=== PATIENT | female | born 1980 | race Caucasian/White ===

== ENCOUNTER 2018-02-25 13:00 | Observation (INO) ==
--- NOTE | 2018-02-25 13:55 | Emergency Department Note ---
Disposition Clinical Impression: Dysphagia Qualifiers: Dysphagia type: unspecified Qualified Code(s): R13.10 - Dysphagia, unspecified Disposition: Admitted As Inpatient Condition: Good Time of Disposition: 17:53 General Adult HPI - General Chief complaint: ED Nausea/Vomiting/Diarrhea Stated complaint: Cant eat or drink Time Seen by Provider: 02/25/18 13:25 Source: patient, other (Patient "friend" in room) Limitations: no limitations Nursing Notes Reviewed: Yes Vital Signs Reviewed: Yes - History of Present Illness HPI Narrative: Patient is a 37-year-old female presenting to [facility] ED for a 2 day history of dysphasia. Patient states that she has a six- year history of esophageal strictures that are managed by Dr. Hawthorne. Patient states that she has had 2 previous dilations performed, previous being 2 years ago with her initial dilation being performed 5 years ago. Patient states that she was scheduled for manometry by Dr. Hawthorne but has not yet made that appointment. Patient states that 2 days ago she began developing developing dysphasia to solid food as well as liquids. Patient states this has progressed to her being unable to handle her own secretions. Patient denies headache, vision change, neck/throat pain/odynophagia, chest pain, shortness of breath, nausea/vomiting/abdominal pain, blood in her urine or stool, or generalized paresthesias. Patient denies any other medical history, or medications. Pt Subjective Complaint: Dysphasia Onset (ago): day(s) Location: neck Radiation: non-radiation Pain Scale: 0 - Related Data Home Medications Medication Instructions Recorded Confirmed RX: No Known Home Drugs 02/25/18 02/25/18 Allergies Allergy/AdvReac Type Severity Reaction Status Date / Time ibuprofen [From Motrin] Allergy See Verified 02/25/18 16:14 Comments tramadol AdvReac Nausea Verified 02/25/18 16:14 All systems ED: reviewed and negative except as stated. Review of Systems: As Per HPI Constitutional: Denies: fever, chills Eyes: Denies: vision change ENT ED: Reports: dysphagia. 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 Absent: scleral icterus, conjunctival injection - Neck Neck exam: Present: normal inspection, trachea midline. Absent: lymphadenopathy, thyromegaly - Chest Chest inspection: Present: normal inspection, symmetric chest wall rise - Respiratory Respiratory exam: Present: normal lung sounds bilaterally. Absent: respiratory distress, wheezes, stridor, accessory muscle use, prolonged expiratory phase - Cardiovascular Cardiovascular exam: Present: regular rate, normal rhythm, normal heart sounds, +S1, +S2. Absent: rubs, gallop, clicks, JVD, +S3, +S4 - Abdominal Exam Abdominal exam: Present: soft, Non-Tender, normal bowel sounds. Absent: distention, guarding, rebound, rigidity, organomegaly - Neurological Exam Neurological exam: Present: alert, oriented X3 - Psychiatric Psychiatric exam: Present: normal affect, normal mood - Skin Skin exam: Present: warm, dry, intact, normal color. Absent: cyanosis, diaphoresis Course Course Narrative: Patient history, review systems, physical exam is concerning for continued complications of esophageal strictures. EKG will be performed to rule out cardiac etiology. GI consult to Dr. Hawthorne will be performed for further recommendations, evaluation and management. - Reevaluation(s) Reevaluation #1: Dr. Hawthorne from gastroenterology has been consulted and recommends admission for fluid/nutrition management and further evaluation and treatment for this patient. Gastroenterology consult has been placed. Dr. Hawthorne will be following. Time: 15:09 Vital Signs Temperature 98.1 F 02/25/18 13:02 Pulse Rate 67 02/25/18 13:02 Respiratory Rate 20 02/25/18 13:02 Blood Pressure 149/88 02/25/18 13:02 O2 Sat by Pulse Oximetry 98 02/25/18 13:02 Temperature 98.1 F 02/25/18 15:39 Pulse Rate 67 02/25/18 15:39 Respiratory Rate 20 02/25/18 15:39 Blood Pressure 149/88 02/25/18 15:39 O2 Sat by Pulse Oximetry 98 02/25/18 15:39 Oxygen Delivery Oxygen Delivery Room Air Medical Decision Making - MDM Narrative Medical decision making narrative: Patient to be admitted to the hospital with Dr. Ozzy clark. - Lab Data Result diagrams: 02/25/18 15:09 02/25/18 15:09 Lab Results 02/25/18 02/25/18 Range/Units 15:09 15:09 WBC 6.4 (4.3-11.1) K/mcL RBC 5.41 H (3.82-4.97) M/mcL Hgb 16.3 H (11.5-15.4) g/dL Hct 47.2 H (35.3-44.9) % MCV 87.2 (83.0-100.0) fL MCH 30.1 (28.0-33.3) pg MCHC 34.5 (31.6-35.5) g/dL RDW 12.7 (11.5-14.5) % Plt Count 118 L (140-400) K/mcL MPV 10.4 (9.4-12.4) fL Immature Gran % 0.3 (0-4) % Seg Neutrophils % 77.7 % Lymphocytes % 15.3 % Monocytes % 5.0 % Eosinophils % 1.1 % Basophils % 0.6 % Neutrophils # 5.0 (1.6-8.9) K/mcL Lymphocytes # 1.0 (0.6-4.6) K/mcL Monocytes # 0.3 (0.0-1.3) K/mcL Eosinophils # 0.1 (0.0-0.6) K/mcL Basophils # 0.0 (0.0-0.2) K/mcL Sodium 139 (136-145) mEq/L Potassium 3.8 (3.5-5.1) mEq/L Chloride 102 (98-107) mEq/L Carbon Dioxide 27 (23-29) mEq/L BUN 18 (6-20) mg/dL Creatinine 0.95 (0.60-1.20) mg/dL Est GFR ( Amer) > 60 (> 60) Est GFR (Non-Af Amer) > 60 (> 60) BUN/Creatinine Ratio 19 (6-26) Glucose 80 (70-105) mg/dL Calculated Osmolality 289 (280-300) Calcium 10.8 H (8.6-10.3) mg/dL Total Bilirubin 1.6 H (0.3-1.0) mg/dL AST 20 (13-39) Units/L ALT 14 (7-52) Units/L Alkaline Phosphatase 86 (34-104) Units/L Serum Total Protein 9.4 H (6.4-8.9) g/dL Albumin 6.0 H (3.5-5.7) g/dL Globulin 3.4 (2.4-3.5) g/dL Albumin/Globulin Ratio 1.8 (1.1-2.2) Attestation Statement - Attestation Attestation: I examined this patient and my medical decision-making was reviewed with the Resident Physician, Dr. Worthy. I agree with the documented findings, disposition and treatment plan as described except to the extent set forth below. Patient is a 37-year-old white female with chronic GI symptoms including dysphasia and achalasia who presents emergency permit today with a 2 day history of worsening dysphasia with both solids and liquids. Patient has been seen by Dr. mirza in the past was last scoped approximately 2 years ago and attempted manometry was done at that time but she had difficulty tolerating the procedure. Patient at that time was admitted for dehydration and even had a psychiatric consult to rule out anything disorder. Patient was also seen by nephrology at that time for AK I likely due to decreased by mouth intake. Patient states she has not really been able tolerate any food or drink over the past 2 days she denies any significant abdominal pain or cramping no chest pain or pressure sensation no shortness of breath no cough no other associated symptoms. I agree with patient's physical exam findings as documented. For me on exam she looked clinically dry with dry lips and mucous membranes but in no acute distress with no respiratory distress and no difficulty managing her secretions at bedside. Patient had an IV saline well placed was given a liter fluid bolus and labs were obtained. We contacted Dr. mirza discussed the case with him and he recommended admission healthy the patient on the floor due to her inability to tolerate by mouth. Case was also discussed with hospitalist who accepted patient for admission for further evaluation and management. Patient is hemodynamically stable at this time.
[2018-02-25] MEDS ORDERED: 0.9 % Sodium Chloride 1,000 ML IVC ONE (15:15)
[2018-02-25 15:44] LABS: Basophils % 0.6 %; Eosinophils # 0.1 K/mcL (0.0-0.6); Eosinophils % 1.1 %; Hematocrit 47.2 % (35.3-44.9); Hemoglobin 16.3 g/dL (11.5-15.4); Immature Granulocytes % 0.3 % (0-4); Lymphocytes % 15.3 %; Mean Corpuscular HGB Conc 34.5 g/dL (31.6-35.5); Mean Corpuscular Hemoglobin 30.1 pg (28.0-33.3); Mean Corpuscular Volume 87.2 fL (83.0-100.0); Mean Platelet Volume 10.4 fL (9.4-12.4); Monocytes # 0.3 K/mcL (0.0-1.3); Platelet Count 118 K/mcL (140-400); Red Blood Count 5.41 M/mcL (3.82-4.97); Red Cell Distribution Width 12.7 % (11.5-14.5); Segmented Neutrophils % 77.7 %
[2018-02-25 15:54] LABS: Alanine Aminotransferase 14 Units/L (7-52); Albumin/Globulin Ratio 1.8 (1.1-2.2); Alkaline Phosphatase 86 Units/L (34-104); Aspartate Amino Transferase 20 Units/L (13-39); BUN/Creatinine Ratio 19 (6-26); Bilirubin,Total 1.6 mg/dL (0.3-1.0); Blood Urea Nitrogen 18 mg/dL (6-20); Calcium 10.8 mg/dL (8.6-10.3); Carbon Dioxide 27 mEq/L (23-29); Chloride 102 mEq/L (98-107); Globulin 3.4 g/dL (2.4-3.5); Glucose 80 mg/dL (70-105); Osmolality,Calculated 289 (280-300); Potassium 3.8 mEq/L (3.5-5.1); Sodium 139 mEq/L (136-145); Total Protein 9.4 g/dL (6.4-8.9); eGFR For Non-African Americans > 60 (> 60)
[2018-02-25] MEDS ORDERED: Naloxone 0.4 MG/ML INJ IVP PRN (16:39)
--- NOTE | 2018-02-25 16:44 | Internal Med History&Physical ---
Date of Encounter: 02/25/18 Time of Encounter: 16:41 Internal Medicine - H&P: HPI Chief complaint: Dysphagia Admitted From: Home Plans for Post Hospital Care: Home History of present illness: Ms. Hercules is a 37 year old female with a reported 4 year history of dysphasia. She has undergone esophageal dilation on [address] Hawthorne. EGD 07/29 concerning for achalasia. She presents to [facility] ED today with worsening dysphagia over the last 2-3 days. She is also reporting nausea and vomiting. She reports that for the last 4 years she has 1 been able to eat beans and rice and mashed potatoes. She reports that she needs any additional solid foods and even some liquids and to experience vomiting. She states that she was attempting to eat pancakes the other day and he managed to take 2 bites before feeling nauseous. She has had intermittent vomiting and nausea since. She is being admitted for observation overnight and will undergo EGD in the morning with Dr. Bethea for possible esophageal dilation. In the meantime we will treat her with antiemetics and IV fluids. Past Med Surg Social Fam HX - Past Medical History Medical history: asthma, GERD, other Additional medical history: Narcolepsy Psychiatric history: no psych history - Past Surgical History Surgical History: Additional surgical history: x2 - Social History Smoking Status: Never smoker Smokeless Tobacco Status: No Alcohol use: none Drug use: none - Family History Mother Living Status: Still Living Father Living Status: Hx Family Cardiac Disorders: Yes (CA, htn) Hx Family Respiratory Disorders: Yes Hx Family Endocrine Disorder: Yes (DM) Internal Medicine - H&P: Meds No Known Home Drugs 02/25/18 [History] Allergy/AdvReac Type Severity Reaction Status Date / Time ibuprofen [From Motrin] Allergy See Verified 02/25/18 16:14 Comments tramadol AdvReac Nausea Verified 02/25/18 16:14 All Systems PM: A 10-system review of systems was performed and is negative for pertinent findings except as documented above in the HPI. Review of systems: REVIEW OF SYSTEMS GENERAL: Negative for any fevers, chills, or weight loss. Positive for nausea and vomiting however, is not vomiting at this time NEUROLOGIC: Negative for any blurry vision, blind spots, double vision, facial asymmetry,dysarthria, hemiparesis, hemisensory deficits, vertigo, ataxia. Positive for dysphagia HEENT: Negative for any head trauma, neck trauma, neck stiffness, photophobia, phonophobia, sinusitis, rhinitis. CARDIAC: Negative for any chest pain, dyspnea on exertion, paroxysmal nocturnal dyspnea, peripheral edema. PULMONARY: Negative for any shortness of breath, wheezing, COPD, or TB exposure. GASTROINTESTINAL: Negative for any abdominal pain, nausea, vomiting, bright red blood per rectum, melena. GENITOURINARY: Negative for any dysuria, hematuria, incontinence. INTEGUMENTARY: Negative for any rashes, cuts, insect bites. RHEUMATOLOGIC: Negative for any joint pains, photosensitive rashes, history of vasculitis or kidney problems. HEMATOLOGIC: Negative for any abnormal bruising, frequent infections or bleeding. - Constitutional Vitals: Temp Pulse Resp BP Pulse Ox 98.1 F 67 20 149/88 98 02/25/18 15:39 02/25/18 15:39 02/25/18 15:39 02/25/18 15:39 02/25/18 15:39 General appearance: Present: A&O X 3 Exam: see exam - Head Head exam: Present: atraumatic, normocephalic - Eye Eye exam: Present: PERRL, conjuntiva pink, sclera anicteric Pupils: Present: PERRL - Neck Neck exam general surgery: Present: supple, trachea midline. Absent: lymphadenopathy - Respiratory Respiratory exam: Present: CTAB. Absent: accessory muscle use, rales, rhonchi, wheezes - Cardiovascular Cardiovascular exam: Present: RRR, +S1, +S2. Absent: diastolic murmur, gallop, rubs, systolic murmur - GI/Abdominal GI/Abdominal exam: Present: normal bowel sounds, soft, no peritoneal signs. Absent: distended, tenderness - Extremities Exam Extremities exam: Present: warm, radial pulses palpable and symmetrical. Absent: calf tenderness, cyanotic, pedal edema - Neurological Exam Neurological exam: Present: CN II-XII intact, oriented X3, no focal deficits. Absent: pronater drift, facial droop, speech deficit - Skin Skin exam: Present: dry, intact Internal Med - H&P Results - Labs CBC & Chem 7: 02/25/18 15:09 02/25/18 15:09 Labs: Short CBC 02/25/18 Range/Units 15:09 WBC 6.4 (4.3-11.1) K/mcL Hgb 16.3 H (11.5-15.4) g/dL Hct 47.2 H (35.3-44.9) % Plt Count 118 L (140-400) K/mcL Neutrophils # 5.0 (1.6-8.9) K/mcL BMP 02/25/18 15:09 Sodium 139 Potassium 3.8 Chloride 102 Carbon Dioxide 27 BUN 18 Creatinine 0.95 Glucose 80 Calcium 10.8 H Liver Function 02/25/18 Range/Units 15:09 Total Bilirubin 1.6 H (0.3-1.0) mg/dL AST 20 (13-39) Units/L ALT 14 (7-52) Units/L Alkaline Phosphatase 86 (34-104) Units/L Albumin 6.0 H (3.5-5.7) g/dL - Assessment and plan (1) Dysphagia Current Visit: Yes Status: Acute Assessment and plan: Presents with dysphagia; difficulty with both solids and liquids previous esophageal dilation in 2014 with little improvement in s/sx to have EGD per Dr. Hawthorne in am for evaluation and dilation trial liquid diet now, NPO at midnight treat n/v with promethazine Qualifiers: Dysphagia type: unspecified Qualified Code(s): R13.10 - Dysphagia, unspecified (2) Nausea & vomiting Current Visit: No Status: Acute Assessment and plan: N/V x 2-3 days h/o esophageal stricture follows with Dr. Hawthorne and has had dilation in the past treat N/V with promethazine IVF at 75ml/hr x 2 liters currently not having and emesis but reporting mild nausea trial full liquid diet as salvador NPO at mn Qualifiers: Vomiting type: unspecified Vomiting Intractability: non-intractable Qualified Code(s): R11.2 - Nausea with vomiting, unspecified (3) DVT prophylaxis Current Visit: Yes Status: Acute Assessment and plan: activity, low-risk - Time Spent With Patient Total time spent is greater than 50% in coordination of care (as documented) at patient's floor/unit and/or counseling patient: less than 15 minutes - VTE Reasons for not Prescribing Prophylaxis: Treatment not Indicated - Low risk for VTE
[2018-02-25 17:15] LABS: INR 1.2; Prothrombin Time 13.3 Seconds (9.4-12.1)
[2018-02-25] MEDS: *HR* Promethazine 25 MG/ML VIAL IVP PRN (17:58)
[2018-02-25] MEDS: 0.9 % Sodium Chloride 1,000 ML IVC SCH (17:58)
[2018-02-25] MEDS ORDERED: Acetaminophen 325 MG TABLET PO PRN (20:34)
[2018-02-25] MEDS ORDERED: Acetaminophen IV 500 MG/50 ML INFUS..BTL IVPB ONE (20:57)
[2018-02-26] MEDS: *HR* Promethazine 25 MG/ML VIAL IVP PRN ×2 (03:29→11:17)
[2018-02-26] MEDS: 0.9 % Sodium Chloride 1,000 ML IVC SCH (07:47)
--- NOTE | 2018-02-26 09:09 | Internal Med Progress Note ---
Hospitalist Progress Note - Encounter Date of Encounter: 02/26/18 Time of Encounter: 09:07 - Subjective Interval History: Seen and examined at bedside today. No acute changes overnight. Continues to report dysphagia but reports nausea is improving. She is to undergo endoscopy further evaluation with Dr. Hawthorne this afternoon. - Exam Vitals: Temp Pulse Resp BP Pulse Ox 98.0 F 63 16 123/77 99 02/26/18 08:45 02/26/18 08:45 02/26/18 08:45 02/26/18 08:45 02/26/18 08:45 Exam: PHYSICAL EXAMINATION: GENERAL: 37-year-old female who appears stated age. She is alert and oriented 3 without any acute distress. HEENT: Head is normocephalic and atraumatic. Extraocular muscles are intact. Pupils are equal, round, and reactive to light and accommodation. Poor dent ition with dental caries throughout. NECK: Supple LUNGS: Clear to auscultation B/L AP and L. HEART: Regular rate and rhythm, S1, S2 without murmur rubs or gallops. ABDOMEN: Soft, nontender, and nondistended. Positive bowel sounds. No hepatosplenomegaly was noted. EXTREMITIES: Without any cyanosis, clubbing, rash, lesions or edema. NEUROLOGIC: Cranial nerves II through XII are grossly intact. PSYCHIATRIC: Appropriate affect, denies SI/HI, without agitation or anxiety - Assessment and Plan (1) Dysphagia Current Visit: Yes Status: Acute Assessment and Plan: Presents with dysphagia; difficulty with both solids and liquids previous esophageal dilation in 2014 with little improvement in s/sx to have EGD per Dr. Hawthorne in am for evaluation and dilation trial liquid diet now, NPO at midnight treat n/v with promethazine 02/26/18--dysphagia persists today. This is been ongoing for greater than 4 years. She has had prior evaluation with gastroenterology in the past. The, patient remained stable. She is nothing by mouth and is to undergo endoscopy for further evaluation of dysphagia this afternoon. She is denying nausea at this time however, continue to treat nausea when necessary. (2) Nausea & vomiting Current Visit: No Status: Acute Assessment and Plan: as above (3) DVT prophylaxis Current Visit: Yes Status: Acute Assessment and Plan: activity, low-risk - Time Spent with Patient Total time spent is greater than 50% in coordination of care (as documented) at patient's floor/unit and/or counseling patient: less than 15 minutes Plan of Care Discussed with: patient Internal Medicine: Result - Labs CBC & Chem 7: 02/25/18 15:09 02/25/18 15:09 Labs: Short CBC 02/25/18 Range/Units 15:09 WBC 6.4 (4.3-11.1) K/mcL Hgb 16.3 H (11.5-15.4) g/dL Hct 47.2 H (35.3-44.9) % Plt Count 118 L (140-400) K/mcL Neutrophils # 5.0 (1.6-8.9) K/mcL BMP 02/25/18 15:09 Sodium 139 Potassium 3.8 Chloride 102 Carbon Dioxide 27 BUN 18 Creatinine 0.95 Glucose 80 Calcium 10.8 H Liver Function 02/25/18 Range/Units 15:09 Total Bilirubin 1.6 H (0.3-1.0) mg/dL AST 20 (13-39) Units/L ALT 14 (7-52) Units/L Alkaline Phosphatase 86 (34-104) Units/L Albumin 6.0 H (3.5-5.7) g/dL - ABG Interpretation ABG results: PT/INR, D-dimer PT 13.3 Seconds (9.4-12.1) H 02/25/18 16:48 - VTE Reasons for not Prescribing Prophylaxis: Treatment not Indicated - Low risk for VTE Consult Discharge Plan - Plan Referrals: Rizwan Patel MD [Primary Care Provider] - (1) Dysphagia Qualifiers: Dysphagia type: unspecified Qualified Code(s): R13.10 - Dysphagia, unspecif ied (2) Nausea & vomiting Qualifiers: Vomiting type: unspecified Vomiting Intractability: non-intractable Qualified Code(s): R11.2 - Nausea with vomiting, unspecified
[2018-02-26] MEDS ORDERED: *HR* Propofol 200 MG/20 ML VIAL IVP ONE ×2 (09:10→09:19)
--- NOTE | 2018-02-26 09:10 | Anesthesia Evaluation PreOp ---
Date of Encounter: 02/26/18 Time of Encounter: 09:07 - Past History Planned Operation: EGD Cardiac History: Denies any Significant Hx Pulmonary History: Denies Any Significant HX DIGITAL RESEARCH ANALYST History: Denies Any Significant HX Other Medical History: Other (dysphagia with hx esophageal dilations in past) Anesthesia History: No Prior Anesthetic Complications, Past Anesthesia (C/S x 2, tonsils) : No Alcohol Use: none Drug use: none Medications and Allergies No Known Home Drugs 02/25/18 [History] Allergy/AdvReac Type Severity Reaction Status Date / Time ibuprofen [From Motrin] Allergy See Verified 02/25/18 16:14 Comments tramadol AdvReac Nausea Verified 02/25/18 16:14 - Meds/Allergy Pre-op Review Medications Reviewed: Yes Allergies Reviewed: Yes Beta Blockers on Current Med List: No Anesthesia Results - Labs 02/25/18 15:09 02/25/18 15:09 Anesthesia Exam Selected Entries 02/26/18 08:45 Temperature 98.0 F Pulse Rate 63 Respiratory Rate 16 Blood Pressure 123/77 O2 Sat by Pulse Oximetry 99 Weight: 53kg NPO (# of Hours): 8 - HEENT Pupil (Motor): EOMI Mallampati: II Teeth: Normal Oral Opening: Greater than 3 - DIGITAL RESEARCH ANALYST LOC: Oriented DIGITAL RESEARCH ANALYST Motor: Normal RUE, Normal LUE, Normal RLE, Normal LLE, Normal Face DIGITAL RESEARCH ANALYST Sensory: Normal: RUE, LUE, RLE, LLE, Face - Cardiac Rhythm: Regular Murmur: None - Pulmonary Breath Sounds: bilateral Clear Anesthesia Assess/Plan ASA Score: 1 Level of consciousness: Cooperative, Oriented Anesthetic Plan: MAC Monitoring Plan: Standard Monitors Recovery Plan: Other (Patient agrees to MAC or GA, refuses test, reports she is not sexually active with men. Understands risks the meds may pose to fetus and is willing to take this risk. Signs consent to this action.)
--- NOTE | 2018-02-26 10:06 | Discharge Summary ---
- NOTES TO OUTPATIENT PROVIDER Notes to Outpatient Provider: EGD suspicious for achalasia as well as gastroparesis. Underwent esophageal dilation. Date of Encounter: 02/26/18 Time of Encounter: 10:04 - Discharge Diagnosis (1) Dysphagia Priority: Primary Status: Acute Assessment and Plan: Presents with dysphagia; difficulty with both solids and liquids previous esophageal dilation in 2014 with little improvement in s/sx to have EGD per Dr. Hawthorne in am for evaluation and dilation trial liquid diet now, NPO at midnight treat n/v with promethazine 02/26/18--dysphagia persists today. This is been ongoing for greater than 4 years. She has had prior evaluation with gastroenterology in the past. The, patient remained stable. She is nothing by mouth and is to undergo endoscopy for further evaluation of dysphagia this afternoon. She is denying nausea at this time however, continue to treat nausea when necessary. 02/26/18 update--EGD completed with findings suspicious for esophageal achalasia. She underwent esophageal dilation. Additionally, findings suspicious for gastroparesis. Qualifiers: Dysphagia type: unspecified Qualified Code(s): R13.10 - Dysphagia, unspecified (2) Nausea & vomiting Priority: Secondary Status: Resolved Qualifiers: Vomiting type: unspecified Vomiting Intractability: non-intractable Qualified Code(s): R11.2 - Nausea with vomiting, unspecified (3) Achalasia of esophagus Priority: Secondary Status: Acute Assessment and Plan: Mild esophageal dilation and Botox injections f/u with GI (4) Gastroparesis Priority: Secondary Status: Acute Assessment and Plan: f/u with GI (5) DVT prophylaxis Priority: Secondary Status: Acute Hospital course: Ms. Hercules is a 37 year old female who presented with dysphagia. She has had episodes of dysphagia off and on over the last 4 years requiring esophageal dilation. She underwent EGD this morning which was suspicious for achalasia as well as gastroparesis. Esophagus was mildly dilated and 80 units of botox was injected. If this does not help she may need myomectomy in the future. F/U with GI in 2-3 weeks. She will need to address suspected DGE at this time. Discharge discussed with: patient, nurse - Time Spent with Patient Total time spent providing and/or coordinating discharge services: Less than 30 minutes - Discharge Medications Home Medications: No Known Home Drugs 02/25/18 [History] Allergies/Adverse Reactions: Allergy/AdvReac Type Severity Reaction Status Date / Time ibuprofen [From Motrin] Allergy See Verified 02/25/18 16:14 Comments tramadol AdvReac Nausea Verified 02/25/18 16:14 Date of admission: 02/25/18 15:36 Primary care physician: Rizwan Patel MD Consults: 02/25/18 15:07 Consult to Gastroenterology [CONS] Stat Consulting Provider: [facility] [place] Reason for Consult: Dysphasia Time Notified: 15:08 Call Completed: Yes Discharging clinician: Bib Syed Anticipated date of discharge: 02/26/18 - Constitutional Vitals: Temp Pulse Resp BP Pulse Ox 98.0 F 63 16 123/77 99 02/26/18 08:45 02/26/18 08:45 02/26/18 08:45 02/26/18 08:45 02/26/18 08:45 General appearance: Present: A&O X 3 Exam: see exam - Head Head exam: Present: atraumatic, normocephalic - Eye Eye exam: Present: PERRL, conjuntiva pink, sclera anicteric Pupils: Present: PERRL - Neck Neck exam general surgery: Present: supple, trachea midline. Absent: lymphadenopathy - Respiratory Respiratory exam: Present: CTAB. Absent: accessory muscle use, rales, rhonchi, wheezes - Cardiovascular Cardiovascular exam: Present: RRR, +S1, +S2. Absent: diastolic murmur, gallop, rubs, systolic murmur - GI/Abdominal GI/Abdominal exam: Present: normal bowel sounds, soft, no peritoneal signs. Absent: distended, tenderness - Extremities Exam Extremities exam: Present: warm, radial pulses palpable and symmetrical. Absent: calf tenderness, cyanotic, pedal edema - Neurological Exam Neurological exam: Present: CN II-XII intact, oriented X3, no focal deficits. Absent: pronater drift, facial droop, speech deficit - Skin Skin exam: Present: dry, intact - Patient Status Disposition: Home, Self-Care Condition: Good Functional capacity at discharge: independent ambulation Overall status at discharge: patient is progressing back to baseline - Discharge Instructions Instructions: Chronic Dysphagia (DC) Follow Up With: Júnior Orosco MD [Partnered Physician] - (Your appointment has been requested. Our offices will call you with an appointment time and date. ) Rizwan Patel MD [Primary Care Provider] - (Your apppointment has been requested, our offices will call you with an appointment time and date) - Diet and Activity Activity: increase activity as tolerated, resume usual activities as tolerated Diet: other (soft diet only until GI follow up) - VTE Reasons for not Prescribing Prophylaxis: Treatment not Indicated - Low risk for VTE
[2018-02-26 10:09] VITALS: BP 122/78
--- NOTE | 2018-02-26 10:14 | Gastroenterology Consult Note ---
Date of Encounter: 02/26/18 Time of Encounter: 10:10 - Assessment and plan (1) Dysphagia Current Visit: Yes Status: Acute Assessment and plan: Likely due to achalasia. Patient underwent EGD today which showed a tight esophageal sphincter with difficulty in relaxation. Likely indicative of achalasia but this needs to be confirmed with manometry as an outpatient. We did inject esophageal sphincter with botulism toxin which we will provide temporary relief however if symptoms persist patient will likely need myomectomy in the future. Stable discharge from a GI standpoint. Recommend soft diet and follow up with GI in 2-3 weeks. Qualifiers: Dysphagia type: esophageal phase Qualified Code(s): R13.10 - Dysphagia, unspecified - Time Spent With Patient Total time spent is greater than 50% in coordination of care (as documented) at patient's floor/unit and/or counseling patient: GI History of Present Illness - Data of Consult Patient: known to practice within the last 3 years Consult date: 02/26/18 Requesting Physician: Ozzie Preciado MD - Consult Narrative Reason for consult: Dysphagia History of present illness: Ms. Hercules is a 37 year old female with history of dysphagia for several years presents again with dysphagia. She states she has had difficulty swallowing for approximately 4 years. She states approximately 2 years ago she had upper endoscopy and had her throat "stretched". This helped her symptoms somewhat however she continues to have difficulty swallowing particularly with foods. She has intermittent dysphagia with liquids. She states she has been treating her self by utilizing a soft diet. She states she had a repeat upper endoscopy approximately a month ago and was supposed to have a procedure done to measure the pressure in her esophagus but could not tolerate this. She denies abdominal fascia, abdominal pain. She reports nausea and vomiting and vomits undigested food. She denies any changes in her bowel habits. She denies fever, chills, chest pain, shortness of breath. Colonoscopy: None EGD: January Past Med Surg Social Fam HX - Past Medical History Medical history: asthma, GERD, other Additional medical history: Narcolepsy Psychiatric history: no psych history - Past Surgical History Surgical History: Additional surgical history: x2 - Social History Smoking Status: Never smoker Smokeless Tobacco Status: No Alcohol use: none Drug use: none - Family History Mother Living Status: Still Living Father Living Status: Hx Family Cardiac Disorders: Yes (NM, htn) Hx Family Respiratory Disorders: Yes Hx Family Endocrine Disorder: Yes (DM) All systems PM: reviewed and no additional remarkable complaints except as stated - Constitutional Vitals: Temp Pulse Resp BP Pulse Ox 98.0 F 68 20 122/78 100 02/26/18 08:45 02/26/18 10:00 02/26/18 10:00 02/26/18 10:00 02/26/18 10:00 General appearance: Present: A&O X 3, pleasant, no acute distress - Head Head exam: Present: atraumatic, normal inspection, normocephalic - Eye Eye exam: Present: EOMI, PERRL - Respiratory Respiratory exam: Present: CTAB. Absent: rales, rhonchi, wheezes - Cardiovascular Cardiovascular exam: Present: RRR. Absent: gallop, rubs, systolic murmur - GI/Abdominal GI/Abdominal exam: Present: normal bowel sounds, soft. Absent: distended, tenderness - Extremities Exam Extremities exam: Present: warm. Absent: pedal edema, tenderness - Skin Skin exam: Present: dry, intact, warm Results - Labs CBC & Chem 7: 02/25/18 15:09 02/25/18 15:09 Labs: Last Result Calcium 10.8 mg/dL (8.6-10.3) H 02/25/18 15:09 Entire Visit Hgb 16.3 g/dL (11.5-15.4) H 02/25/18 15:09 Hct 47.2 % (35.3-44.9) H 02/25/18 15:09 PT 13.3 Seconds (9.4-12.1) H 02/25/18 16:48 Total Bilirubin 1.6 mg/dL (0.3-1.0) H 02/25/18 15:09 AST 20 Units/L (13-39) 02/25/18 15:09 ALT 14 Units/L (7-52) 02/25/18 15:09 - ABG ABG results: PT/INR, D-dimer PT 13.3 Seconds (9.4-12.1) H 02/25/18 16:48 Consult Discharge Plan - Plan Instructions: Chronic Dysphagia (DC) Referrals: Rizwan Patel MD [Primary Care Provider] -
== END 2018-02-26 14:28 | disposition home or self-care (01) ==
LOC: EMEROOARM 13:00 → 3BNU 13:00
PROVIDERS: ADMIT Internal Medicine; ATTEND Internal Medicine